=== PATIENT | female | born 1990 | race Caucasian/White ===

== ENCOUNTER 2019-02-01 05:35 | Inpatient (IN) | payer MEDICAID ==
[2019-02-01] MEDS ORDERED: BUTORPHANOL 2 MG INJ IV (06:30)
[2019-02-01] MEDS ORDERED: LIDOCAINE 1% (MPF) 30 ML INJ INJ (06:30)
[2019-02-01] MEDS ORDERED: OXYTOCIN 30 UNITS/LR 500 ML IV ×3 (06:30→16:00)
[2019-02-01] MEDS ORDERED: METHYLERGONOVINE 0.2 MG INJ IM ×2 (06:30→16:00)
[2019-02-01] MEDS ORDERED: MISOPROSTOL 200 MCG TAB PR ×2 (06:30→16:00)
[2019-02-01] MEDS ORDERED: BUTORPHANOL 1 MG INJ IV (06:30)
[2019-02-01] MEDS ORDERED: CARBOPROST 250 MCG INJ IM ×2 (06:30→16:00)
[2019-02-01] MEDS: LACTATED RINGER'S 1,000 ML IV ×4 (06:55→10:00)
[2019-02-01] MEDS: AMPICILLIN 2 GM/NS (PMX) 100 ML IV (06:58)
[2019-02-01 07:22] LABS: ADD MAN DIFF? NO
[2019-02-01 07:25] LABS: WHITE BLOOD COUNT 9.9 10^3/ul (4.8-10.8)
[2019-02-01 07:25] LABS: BASOPHILS % 0.2 % (0.0-2.0); EOSINOPHILS # 0.2 10^3/ul (0.0-0.5); EOSINOPHILS % 1.8 % (0.0-7.0); HEMATOCRIT 41.9 % (37.0-47.0); LYMPHOCYTES # 2.8 10^3/ul (0.8-2.9); LYMPHOCYTES % 28.2 % (15.0-51.0); MEAN CORPUSCULAR HEMOGLOBIN 30.8 pg (29.0-33.0); MEAN CORPUSCULAR HGB CONC 33.4 g/dl (32.0-37.0); MEAN CORPUSCULAR VOLUME 92.3 fl (82.0-101.0); MEAN PLATELET VOLUME 12.7 fl (7.4-10.4); MONOCYTE # 0.6 10^3/ul (0.3-0.9); MONOCYTES % 6.5 % (0.0-11.0); NEUTROPHIL # 6.2 10^3/ul (1.6-7.5); PLATELET COUNT 204 10^3/UL (140-415); RED BLOOD COUNT 4.54 10^6/ul (4.20-5.40); RED CELL DISTRIBUTION WIDTH 13.6 % (11.5-14.5)
[2019-02-01 07:44] LABS: INR 0.87; PROTIME 11.9 Sec (11.9-14.9); PT RATIO 0.9
[2019-02-01 07:45] LABS: PARTIAL THROMBOPLASTIN TIME 28.7 Sec (23.0-35.0)
[2019-02-01 08:14] LABS: HEPATITIS B SURFACE ANTIGEN NEGATIVE (NEGATIVE)
[2019-02-01] MEDS ORDERED: FENTAnyl 2MCG/ML-ROPIV 0.2% 100 ML (08:26)
[2019-02-01] MEDS ORDERED: NALBUPHINE HCL (10 MG/1 ML) INJ IV (09:00)
[2019-02-01] MEDS ORDERED: NALOXONE (0.4 MG/ML) INJ IV (09:00)
[2019-02-01] MEDS: MINERAL OIL LIGHT 10 ML VIAL TOP (09:30)
[2019-02-01] MEDS ORDERED: DEXTROSE 5%-LR 1,000 ML IV (10:02)
[2019-02-01] MEDS: FENTAnyl 2MCG/ML-ROPIV 0.2% 100 ML BAG EPI (10:19)
[2019-02-01] MEDS: AMPICILLIN 1 GM/NS (PMX) 50 ML IV (10:20)
[2019-02-01 10:45] LABS: ADD UMIC NO; UR ASCORBIC ACID NEGATIVE (NEGATIVE); UR BILIRUBIN (Dip) NEGATIVE (NEGATIVE); UR BLOOD (Dip) NEGATIVE (NEGATIVE); UR CLARITY CLEAR (CLEAR); UR COLOR STRAW (YELLOW); UR GLUCOSE (Dip) NEGATIVE (NEGATIVE); UR KETONES (Dip) NEGATIVE (NEGATIVE); UR LEUKOCYTE ESTERASE (Dip) NEGATIVE Leu/ul (NEGATIVE); UR NITRITE (Dip) NEGATIVE (NEGATIVE); UR SPECIFIC GRAVITY (Dip) 1.006 (1.003-1.030); UR TOTAL PROTEIN (Dip) NEGATIVE (NEGATIVE); UR UROBILINOGEN (Dip) NEGATIVE (NEGATIVE)
[2019-02-01 10:57] LABS: ALANINE AMINOTRANSFERASE 19 IU/L (13-69); ALBUMIN 3.2 g/dl (3.3-4.9); ALKALINE PHOSPHATASE 145 IU/L (42-121); ANION GAP 6 (5-13); ASPARTATE AMINO TRANSFERASE 17 IU/L (15-46); BILIRUBIN,INDIRECT 0.6 mg/dl (0-1.1); BILIRUBIN,TOTAL 0.6 mg/dl (0.2-1.3); BLOOD UREA NITROGEN 7 mg/dl (7-20); CALCIUM 8.7 mg/dl (8.4-10.2); CARBON DIOXIDE 24 mmol/L (21-31); CHLORIDE 108 mmol/L (97-110); CREATININE 0.47 mg/dl (0.44-1.00); Estimated GFR > 60 mL/min (>60); GLUCOSE 106 mg/dl (70-220); POTASSIUM 4.7 mmol/L (3.5-5.1); SODIUM 138 mmol/L (135-144); TOTAL PROTEIN 6.4 g/dl (6.1-8.1); URIC ACID 4.2 mg/dl (3.1-7.9)
[2019-02-01 11:01] LABS: AMPHETAMINE/METHAMPHETAMINE Negative (NEGATIVE); BARBITURATES Negative (NEGATIVE); BENZODIAZEPINES Negative (NEGATIVE); CANNABINOIDS Negative (NEGATIVE); COCAINE Negative (NEGATIVE); OPIATES Negative (NEGATIVE)
[2019-02-01] MEDS: OXYTOCIN 30 UNITS/LR 500 ML IV ×3 (11:36→16:04)
[2019-02-01] MEDS: IBUPROFEN 600 MG TAB PO (11:53)
[2019-02-01] MEDS: ONDANSETRON 4 MG INJ IV (12:24)
[2019-02-01 14:45] LABS: RAPID PLASMA REAGIN NONREACTIVE (NR)
[2019-02-01] MEDS: LACTATED RINGER'S 1,000 ML IV* ×2 (15:47→23:47)
[2019-02-01] MEDS ORDERED: DIPHENHYDRAMINE 25 MG CAP PO (16:00)
[2019-02-01] MEDS ORDERED: HYDROCODONE/APAP (5/325) TAB PO (16:00)
[2019-02-01] MEDS ORDERED: ACETAMINOPHEN 325 MG TAB PO (16:00)
[2019-02-01] MEDS ORDERED: ZOLPIDEM 5 MG TAB PO (16:00)
[2019-02-01] MEDS: IBUPROFEN 800 MG TAB PO (17:46)
[2019-02-01] MEDS: WITCH HAZEL/GLYCERIN PAD PR (18:02)
[2019-02-01] MEDS: LANOLIN HPA 1 PKT TOP (18:02)
[2019-02-01] MEDS: BENZOCAINE 20% 56 ML SPRAY TOP (18:02)
[2019-02-02] MEDS: IBUPROFEN 800 MG TAB PO ×5 (00:09→23:47)
[2019-02-02] MEDS: LACTATED RINGER'S 1,000 ML IV* ×3 (07:47→23:47)
[2019-02-02 08:32] LABS: ADD MAN DIFF? NO
[2019-02-02 08:40] LABS: BASOPHILS % 0.3 % (0.0-2.0); EOSINOPHILS # 0.2 10^3/ul (0.0-0.5); EOSINOPHILS % 1.6 % (0.0-7.0); HEMATOCRIT 36.1 % (37.0-47.0); HEMOGLOBIN 12.1 g/dl (12.0-16.0); LYMPHOCYTES # 3.1 10^3/ul (0.8-2.9); LYMPHOCYTES % 32.6 % (15.0-51.0); MEAN CORPUSCULAR HEMOGLOBIN 31.3 pg (29.0-33.0); MEAN CORPUSCULAR HGB CONC 33.5 g/dl (32.0-37.0); MEAN CORPUSCULAR VOLUME 93.5 fl (82.0-101.0); MEAN PLATELET VOLUME 12.6 fl (7.4-10.4); MONOCYTE # 0.6 10^3/ul (0.3-0.9); MONOCYTES % 6.2 % (0.0-11.0); NEUTROPHIL # 5.5 10^3/ul (1.6-7.5); NEUTROPHILS % 58.8 % (39.0-77.0); PLATELET COUNT 157 10^3/UL (140-415); RED BLOOD COUNT 3.86 10^6/ul (4.20-5.40); RED CELL DISTRIBUTION WIDTH 13.9 % (11.5-14.5)
[2019-02-02 08:40] LABS: WHITE BLOOD COUNT 9.4 10^3/ul (4.8-10.8)
[2019-02-02] MEDS: SENNA/DOCUSATE NA (8.6MG/50MG) TAB PO (09:26)
[2019-02-02] MEDS: MAGNESIUM HYDROXIDE 30ML CUP PO (09:26)
[2019-02-03] MEDS: IBUPROFEN 800 MG TAB PO ×2 (05:38→12:47)
[2019-02-03] MEDS: LACTATED RINGER'S 1,000 ML IV* (06:24)
[2019-02-03] MEDS: DIPHTH/TET/ACEL PERTUSS (ADULT) 0.5 ML VIAL IM* (09:00)
[2019-02-03] MEDS: VARICELLA VACCINE LIVE/PF 1,350 UNIT/0.5 ML ML SC* (09:00)
[2019-02-03] MEDS: MEASLES,MUMPS,RUBELLA VACCINE INJ SC* (09:00)
== END 2019-02-03 14:15 | disposition home or self-care (01) | DRG 807 ==
LOC: OBT 05:35 → L-D 05:35 → OBT 06:20 → L-D 06:20 → PP1 15:11
PROVIDERS: Obstetrics & Gynecology
PROC: 10E0XZZ Delivery of Products of Conception, External Approach (ICD-10-PCS; principal; 2019-02-01)
PROC: 0HQ9XZZ Repair Perineum Skin, External Approach (ICD-10-PCS; 2019-02-01)
DX: O70.0 First degree perineal laceration during delivery (principal); Z37.0 Single live birth; Z3A.38 38 weeks gestation of pregnancy
CPT/HCPCS: 62322; 76815; 80053; 80307; 81003; 84560; 85025; 85610; 85730; 86592; 86850; 86900; 86901; 87340; 90716; 99464